=== PATIENT | female | born 1960 | race Caucasian/White ===

== ENCOUNTER 2017-05-25 12:47 | Inpatient (IN) | payer OTHER ==
[2017-05-25 16:07] VITALS: BMI 32.3
--- NOTE | 2017-05-25 18:02 | HP ---
CIWA Score - CIWA Score Nausea/Vomitin-Mild Nausea/No Vomiting Muscle Tremors: 4-Moderate,w/Arms Extend Anxiety: 4-Mod. Anxious/Guarded Agitation: 4-Moderately Restless Paroxysmal Sweats: 1-Minimal Palms Moist Orientation: 0-Oriented Tacttile Disturbances: 0-None Auditory Disturbances: 0-None Visual Disturbances: 0-None Headache: 0-None Present CIWA-Ar Total Score: 14 Admission ROS B[facility] - HPI Chief Complaint: WITHDRAWAL SX Allergies/Adverse Reactions: Allergies Allergy/AdvReac Type Severity Reaction Status Date / Time Penicillins Allergy Severe Rash Verified 05/25/17 16:34 shellfish derived Allergy Severe Rash Verified 05/25/17 16:34 History of Present Illness: 57 YEARS OLD FEMALE WITH LONG HISTORY OF ALCOHOL DEPENDENCE HAS GERD AND LOWER BACK PAIN AND DEPRESSION IS ADMITTED TO DETOX Exam Limitations: No Limitations - Ebola screening Have you traveled outside of the country in the last 21 days: No Have you had contact with anyone from an Ebola affected area: No Have you been sick,other than usual withdrawal symptoms: No Do you have a fever: No - Review of Systems Constitutional: Changes in sleep, Weight Stable EENT: reports: Blurred Vision (READING EYE GLASSES) Respiratory: reports: No Symptoms reported Cardiac: reports: No Symptoms Reported GI: reports: Diarrhea, Nausea, Poor Fluid Intake, Indigestion, Abdominal cramping : reports: No Symptoms Reported Musculoskeletal: reports: Back Pain (ARTHRITIS) Integumentary: reports: No Symptoms Reported Neuro: reports: Seizure (2013 ALCOHOL RELATED), Tremors Endocrine: reports: No Symptoms Reported Hematology: reports: No Symptoms Reported Psychiatric: reports: Judgement Intact, Orientated x3, Depressed Other Systems: Reviewed and Negative Patient History - Patient Medical History Hx Anemia: No Hx Asthma: No Hx Chronic Obstructive Pulmonary Disease (COPD): No Hx Cancer: No Hx Cardiac Disorders: No Hx Congestive Heart Failure: No Hx Hypertension: No Hx Hypercholesterolemia: No Hx Pacemaker: No HX Cerebrovascular Accident: No Hx Seizures: Yes (etoh related in 2013) Hx Dementia: No Hx Diabetes: No Hx Gastrointestinal Disorders: Yes Hx Liver Disease: No Hx Genitourinary Disorders: No Hx Sexually Transmitted Disorders: No Hx Renal Disease (ESRD): No Hx Thyroid Disease: No Hx Human Immunodeficiency Virus (HIV): No Hx Hepatitis C: No Hx Depression: Yes Hx Suicide Attempt: No Hx Bipolar Disorder: No Hx Schizophrenia: No - Patient Surgical History Past Surgical History: Yes Hx Orthopedic Surgery: Yes (bilateral knee replacements 07/22/16 L knee 10/10/16 R knee) Anesthesia Reaction: No - PPD History Previous Implant?: Yes Documented Results: Negative w/o proof Implanted On Prior [facility] Admission?: No PPD to be Administered?: Yes - Reproductive History Patient is a Female of Child Bearing Age (11 -55 yrs old): No Patient : No - Smoking Cessation Smoking history: Never smoked Hx Chewing Tobacco Use: No Initiated information on smoking cessation: No - Substance & Tx. History Hx Alcohol Use: Yes Hx Substance Use: No Substance Use Type: Alcohol Hx Substance Use Treatment: Yes (2014) - Substances Abused Alcohol Route: Oral Frequency: Daily Amount used: 2 pints VODKA Age of first use: 16 Date of Last Use: 05/25/17 Family Disease History - Family Disease History Family Disease History: Heart Disease: Mother, Other: Father ( ALCOHOL) Admission Physical Exam [facility] - Vital Signs Vital Signs: Vital Signs - 24 hr 05/25/17 15:49 Temperature 97.3 F L Pulse Rate 87 Respiratory 20 Rate Blood Pressure 137/83 - Physical General Appearance: Yes: Nourished, Appropriately Dressed, Mild Distress, Alcohol on Breath, Tremorous, Irritable, Sweating, Anxious HEENTM: Yes: Hearing grossly Normal, Normal ENT Inspection, Normocephalic, Normal Voice Respiratory: Yes: Chest Non-Tender, Lungs Clear, Normal Breath Sounds, No Respiratory Distress, No Accessory Muscle Use Neck: Yes: Supple, Trachea in good position Breast: Yes: Breasts Symetrical Cardiology: Yes: Regular Rhythm, Regular Rate, S1, S2 Abdominal: Yes: Non Tender, Soft, Increased Bowel Sounds Genitourinary: Yes: Within Normal Limits Back: Yes: Normal Inspection Musculoskeletal: Yes: full range of Motion, Gait Steady, Back pain Extremities: Yes: Normal Inspection, Normal Range of Motion, Non-Tender, Tremors Neurological: Yes: Alert, Motor Strength 5/5, Normal Response, Depressed Affect Integumentary: Yes: Warm Lymphatic: Yes: Within Normal Limits - Diagnostic (1) Alcohol dependence with uncomplicated withdrawal Current Visit: Yes Status: Acute (2) Chronic back pain Current Visit: Yes Status: Chronic Qualifiers: Back pain location: low back pain Back pain laterality: bilateral Sciatica presence: without sciatica Qualified Code(s): M54.5 - Low back pain; G89.29 - Other chronic pain; G89.29 - Other chronic pain (3) GERD (gastroesophageal reflux disease) Current Visit: Yes Status: Chronic Qualifiers: Esophagitis presence: without esophagitis Qualified Code(s): K21.9 - Gastro -esophageal reflux disease without esophagitis (4) Depression (emotion) Current Visit: Yes Status: Suspected Qualifiers: Depression Type: dysthymia Qualified Code(s): F34.1 - Dysthymic disorder Cleared for Admission S - Detox or Rehab [facility] Level of Care: Medically Managed Detox Regimen/Protocol: Librium [facility] Breath Alcohol Content Breath Alcohol Content: 0.123 Urine Pregancy Test - Result Urine Test Results: Negative- NO Line Present Urine Drug Screen - Results Drug Screen Negative: No Urine Drug Screen Results: TCA-Tricyclic Antidepress
[2017-05-25] MEDS ORDERED: P-EPHED 60MG/TRIPROLIDI 2.5MG TABLET PO PRN (18:09)
[2017-05-25] MEDS ORDERED: guaiFENesin/D-METHORPHAN HB 10 ML UNIT-DOSE CUPS PO PRN (18:09)
[2017-05-25] MEDS ORDERED: MAGNESIUM CITRATE 300 ML BOTTLE PO PRN (18:09)
[2017-05-25] MEDS ORDERED: ACETAMINOPHEN 325 MG TABLET (FP) PO PRN (18:09)
[2017-05-25] MEDS ORDERED: chlordiazePOXIDE HCL 25 MG CAPSULE PO PRN (18:09)
[2017-05-25] MEDS ORDERED: MENTHOL/PHENOL 1 EACH UD MM PRN (18:09)
[2017-05-25] MEDS ORDERED: MAGNESIUM HYDROX 2400MG/30ML ORAL SUSPENSION 30 ML CUP PO PRN (18:09)
[2017-05-25] MEDS ORDERED: MAG HYDROX/AL HYDROX/SIMETH 30 ML UNIT-DOSE CUP PO PRN (18:09)
[2017-05-25] MEDS ORDERED: LOPERAMIDE HCL 2 MG CAPSULE PO PRN (18:09)
[2017-05-25 20:30] LABS: URINE APPEARANCE SLCLOUDY; URINE BILIRUBIN NEGATIVE (NEGATIVE); URINE BLOOD NEGATIVE (NEGATIVE); URINE COLOR YELLOW; URINE GLUCOSE (UA) NEGATIVE (NEGATIVE); URINE KETONE TRACE (NEGATIVE); URINE NITRITE NEGATIVE (NEGATIVE); URINE UROBILINOGEN NEGATIVE mg/dL (0.2-1.0)
[2017-05-25 20:39] LABS: URINE PROTEIN 1+ (NEGATIVE)
[2017-05-25 20:47] LABS: URINE HYALINE CAST 7 /lpf; URINE MUCUS RARE; URINE RBC 1 /hpf (0-3); URINE WBC 1 /hpf (3-5)
[2017-05-25 22:10] LABS: URINE LEUK ESTERASE Negative (NEGATIVE)
[2017-05-25] MEDS: RANITIDINE HCL 150 MG TABLET (FP) PO SCH (22:13)
[2017-05-25] MEDS: BACLOFEN 10 MG TABLET (FP) PO SCH (22:13)
[2017-05-25] MEDS: THIAMINE HCL 100 MG TABLET (FP) PO SCH (22:13)
[2017-05-25] MEDS: NAPROXEN 500 MG TABLET (FP) PO PRN (22:14)
[2017-05-25] MEDS: GABAPENTIN 300 MG CAPSULE (FP) PO SCH (22:14)
[2017-05-25] MEDS: chlordiazePOXIDE HCL 25 MG CAPSULE PO SCH (22:14)
[2017-05-26] MEDS: GABAPENTIN 300 MG CAPSULE (FP) PO SCH ×3 (05:25→22:14)
[2017-05-26] MEDS: BACLOFEN 10 MG TABLET (FP) PO SCH ×3 (05:25→22:13)
[2017-05-26] MEDS: chlordiazePOXIDE HCL 25 MG CAPSULE PO SCH ×4 (06:07→22:13)
[2017-05-26 10:03] LABS: MCH 27.9 pg (25.7-33.7); MCHC 32.3 g/dl (32.0-36.0); MEAN CELL VOLUME 86.3 fl (80-96); MEAN PLT VOLUME 7.4 fl (7.5-11.1); PLATELET COUNT 278 K/MM3 (134-434); RDW 18.1 % (11.6-15.6); WHITE BLOOD COUNT 5.8 K/mm3 (4.0-10.0)
[2017-05-26] MEDS: RANITIDINE HCL 150 MG TABLET (FP) PO SCH ×2 (10:23→22:14)
[2017-05-26] MEDS: PRENATAL VITAMINS W/ FOLIC ACID TABLET (FP) PO SCH (10:23)
[2017-05-26] MEDS: LIDOCAINE 5% TOPICAL PATCH TP SCH (10:23)
[2017-05-26 10:30] LABS: ALBUMIN 3.7 g/dl (3.4-5.0); ALK PHOS 74 U/L (45-117); ANION GAP 10 (8-16); BILIRUBIN,TOTAL 1.2 mg/dL (0.2-1.0); CALCIUM 9.2 mg/dL (8.5-10.1); CO2 30 mmol/L (21-32); CREATININE 0.8 mg/dL (0.55-1.02); GLUCOSE,RANDOM 86 mg/dL (74-106); SGOT/AST 28 U/L (15-37); SGPT/ALT 23 U/L (12-78); TOT PROT 6.8 g/dl (6.4-8.2)
--- NOTE | 2017-05-26 12:08 | PN ---
[facility] CIWA - CIWA Score Nausea/Vomitin-No Nausea/No Vomiting Muscle Tremors: 4-Moderate,w/Arms Extend Anxiety: 4-Mod. Anxious/Guarded Agitation: 4-Moderately Restless Paroxysmal Sweats: 3 Orientation: 0-Oriented Tacttile Disturbances: 0-None Auditory Disturbances: 0-None Visual Disturbances: 0-None Headache: 2-Mild CIWA-Ar Total Score: 17 BHS Progress Note (SOAP) Subjective: headache sweats stomach ache diarrhea Objective: 05/26/17 12:06 Vital Signs Temperature 97.7 F 05/26/17 09:33 Pulse Rate 79 05/26/17 09:33 Respiratory Rate 18 05/26/17 09:33 Blood Pressure 119/71 05/26/17 09:33 O2 Sat by Pulse Oximetry (%) Laboratory Tests 05/25/17 05/26/17 05/26/17 19:40 07:00 07:00 WBC 5.8 RBC 4.00 Hgb 11.1 Hct 34.5 MCV 86.3 MCH 27.9 MCHC 32.3 RDW 18.1 H Plt Count 278 MPV 7.4 L Sodium 141 Potassium 4.2 Chloride 101 Carbon Dioxide 30 Anion Gap 10 BUN 18 Creatinine 0.8 Creat Clearance w eGFR > 60 Random Glucose 86 Calcium 9.2 Total Bilirubin 1.2 H AST 28 ALT 23 Alkaline Phosphatase 74 Total Protein 6.8 Albumin 3.7 Urine Color Yellow Urine Appearance Slcloudy Urine pH 5.0 Ur Specific [place] 1.020 Urine Protein 1+ H Urine Glucose (UA) Negative Urine Ketones Trace H Urine Blood Negative Urine Nitrite Negative Urine Bilirubin Negative Urine Urobilinogen Negative Ur Leukocyte Esterase Negative Urine WBC (Auto) 1 Urine RBC (Auto) 1 Ur Epithelial Cells Rare Hyaline Casts 7 Urine Mucus Rare RPR Titer 05/26/17 07:00 WBC RBC Hgb Hct MCV MCH MCHC RDW Plt Count MPV Sodium Potassium Chloride Carbon Dioxide Anion Gap BUN Creatinine Creat Clearance w eGFR Random Glucose Calcium Total Bilirubin AST ALT Alkaline Phosphatase Total Protein Albumin Urine Color Urine Appearance Urine pH Ur Specific [place] Urine Protein Urine Glucose (UA) Urine Ketones Urine Blood Urine Nitrite Urine Bilirubin Urine Urobilinogen Ur Leukocyte Esterase Urine WBC (Auto) Urine RBC (Auto) Ur Epithelial Cells Hyaline Casts Urine Mucus RPR Titer Nonreactive aaox3 ambulating no acute distress Assessment: 05/26/17 12:07 withdrawals sx Plan: continue detox increase fluids immodium prn tylenol/motrin prn
--- NOTE | 2017-05-26 12:50 | PN ---
B[facility] Progress Note Note: Pt. approached bedside by news writer. Refused to be seen by Psychiatric Nurse Practitioner.
--- NOTE | 2017-05-26 16:14 | CONSULT ---
[facility] Psychiatric Consult - Data Date of interview: 05/26/17 Admission source: [facility] Identifying data: Readmission to [facility] for this 57 y/o female seeking detox treatment on for alcohol dependence.Patient is single without children,domiciled,unemployed and supported on welfare. Substance Abuse History: Discussed in this session.Patient admits to active use of alcohol.Details in current [facility] report. Smoking history: Never smoked. Hx Chewing Tobacco Use: No. Initiated information on smoking cessation: No. - Substance & Tx. History. Hx Alcohol Use: Yes. Hx Substance Use: No. Substance Use Type: Alcohol. Hx Substance Use Treatment: Yes (2014). - Substances Abused. Alcohol. Route: Oral. Frequency: Daily. Amount used: 2 pints VODKA. Age of first use: 16. Date of Last Use: 05/25/17 Medical History: Arthritis,lower back pain,GERD and a history of bilateral knee replacement. Psychiatric History: No reported history of psychiatric hospitalizations.Patient reports that she has just started therapy (no medications) at [facility] in April 2017 ([facility]) in [facility].Suspected of having DONALD.Ms Drake denies history of suicide attempts. Physical/Sexual Abuse/Trauma History: Patient denies. Additional Comment: Urine Drug Screen Results: TCA-Tricyclic Antidepressant.Noted. Mental Status Exam - Mental Status Exam Alert and Oriented to: Time, Place, Person Cognitive Function: Good Patient Appearance: Well Groomed Mood: Hopeful, Euthymic Affect: Appropriate, Normal Range Patient Behavior: Appropriate, Cooperative (well-mannered) Speech Pattern: Clear, Appropriate Voice Loudness: Normal Thought Process: Intact, Goal Oriented Thought Disorder: Not Present Hallucinations: Denies Suicidal Ideation: Denies Homicidal Ideation: Denies Insight/Judgement: Poor Sleep: Well Appetite: Good Muscle strength/Tone: Normal Gait/Station: Normal Psychiatric Findings - Problem List ([place] 1, 2,3) (1) Alcohol dependence with uncomplicated withdrawal Current Visit: Yes Status: Acute (2) Alcohol-induced mood disorder Current Visit: Yes Status: Suspected - Initial Treatment Plan Initial Treatment Plan: Psychoeducation.Detoxification in effect.Obserrvation.
[2017-05-26] MEDS: LORATADINE 10 MG TABLET PO SCH (17:01)
[2017-05-26] MEDS: LIDOCAINE PATCH REMOVAL MC SCH (22:13)
[2017-05-26] MEDS: THIAMINE HCL 100 MG TABLET (FP) PO SCH (22:14)
[2017-05-26] MEDS: NAPROXEN 500 MG TABLET (FP) PO PRN (22:14)
[2017-05-27] MEDS: BACLOFEN 10 MG TABLET (FP) PO SCH ×3 (05:26→22:21)
[2017-05-27] MEDS: chlordiazePOXIDE HCL 25 MG CAPSULE PO SCH ×3 (05:26→17:23)
[2017-05-27] MEDS: GABAPENTIN 300 MG CAPSULE (FP) PO SCH ×3 (05:27→22:21)
--- NOTE | 2017-05-27 08:01 | EKG ---
Test Reason : Blood Pressure : / mmHG Vent. Rate : 093 BPM Atrial Rate : 093 BPM P-R Int : 144 ms QRS Dur : 128 ms QT Int : 386 ms P-R-T Axes : 054 054 031 degrees QTc Int : 479 ms NORMAL SINUS RHYTHM RIGHT BUNDLE BRANCH BLOCK ABNORMAL ECG NO PREVIOUS ECGS AVAILABLE Confirmed by MD Gomez Daniel ([id number]) on 05/26/2017 3:04:21 PM Also confirmed by MD Gomez Daniel [id number]), editor school photograph RICHARD ORTEGA ([id number]) on 05/27/2017 8:00:55 AM Referred By: Beatrice Zamarripa Confirmed By:Richard Gomez MD
[2017-05-27] MEDS: PRENATAL VITAMINS W/ FOLIC ACID TABLET (FP) PO SCH (10:42)
[2017-05-27] MEDS: RANITIDINE HCL 150 MG TABLET (FP) PO SCH ×2 (10:42→22:21)
[2017-05-27] MEDS: LORATADINE 10 MG TABLET PO SCH (10:42)
[2017-05-27] MEDS: LIDOCAINE 5% TOPICAL PATCH TP SCH (10:43)
--- NOTE | 2017-05-27 11:00 | PN ---
[facility] CIWA - CIWA Score Nausea/Vomitin-No Nausea/No Vomiting Muscle Tremors: 4-Moderate,w/Arms Extend Anxiety: 4-Mod. Anxious/Guarded Agitation: 4-Moderately Restless Paroxysmal Sweats: 3 Orientation: 0-Oriented Tacttile Disturbances: 0-None Auditory Disturbances: 0-None Visual Disturbances: 0-None Headache: 0-None Present CIWA-Ar Total Score: 15 BHS Progress Note (SOAP) Subjective: diarrhea sweats shakes Objective: 05/27/17 11:06 Vital Signs Temperature 97.9 F 05/27/17 10:16 Pulse Rate 78 05/27/17 10:16 Respiratory Rate 18 05/27/17 10:16 Blood Pressure 117/89 05/27/17 10:16 O2 Sat by Pulse Oximetry (%) Laboratory Tests 05/25/17 05/26/17 05/26/17 19:40 07:00 07:00 WBC 5.8 RBC 4.00 Hgb 11.1 Hct 34.5 MCV 86.3 MCH 27.9 MCHC 32.3 RDW 18.1 H Plt Count 278 MPV 7.4 L Sodium 141 Potassium 4.2 Chloride 101 Carbon Dioxide 30 Anion Gap 10 BUN 18 Creatinine 0.8 Creat Clearance w eGFR > 60 Random Glucose 86 Calcium 9.2 Total Bilirubin 1.2 H AST 28 ALT 23 Alkaline Phosphatase 74 Total Protein 6.8 Albumin 3.7 Urine Color Yellow Urine Appearance Slcloudy Urine pH 5.0 Ur Specific [place] 1.020 Urine Protein 1+ H Urine Glucose (UA) Negative Urine Ketones Trace H Urine Blood Negative Urine Nitrite Negative Urine Bilirubin Negative Urine Urobilinogen Negative Ur Leukocyte Esterase Negative Urine WBC (Auto) 1 Urine RBC (Auto) 1 Ur Epithelial Cells Rare Hyaline Casts 7 Urine Mucus Rare RPR Titer 05/26/17 07:00 WBC RBC Hgb Hct MCV MCH MCHC RDW Plt Count MPV Sodium Potassium Chloride Carbon Dioxide Anion Gap BUN Creatinine Creat Clearance w eGFR Random Glucose Calcium Total Bilirubin AST ALT Alkaline Phosphatase Total Protein Albumin Urine Color Urine Appearance Urine pH Ur Specific [place] Urine Protein Urine Glucose (UA) Urine Ketones Urine Blood Urine Nitrite Urine Bilirubin Urine Urobilinogen Ur Leukocyte Esterase Urine WBC (Auto) Urine RBC (Auto) Ur Epithelial Cells Hyaline Casts Urine Mucus RPR Titer Nonreactive aaox3 ambulating no acute distress Assessment: 05/27/17 11:06 withdrawal sx Plan: continue detox immodium prn increase fluids
[2017-05-27] MEDS: chlordiazePOXIDE 5 MG CAPSULE PO SCH (22:20)
[2017-05-27] MEDS: LIDOCAINE PATCH REMOVAL MC SCH (22:21)
[2017-05-27] MEDS: NAPROXEN 500 MG TABLET (FP) PO PRN (22:21)
[2017-05-27] MEDS: THIAMINE HCL 100 MG TABLET (FP) PO SCH (22:21)
[2017-05-28] MEDS: chlordiazePOXIDE 5 MG CAPSULE PO SCH ×3 (05:55→17:33)
[2017-05-28] MEDS: GABAPENTIN 300 MG CAPSULE (FP) PO SCH ×3 (05:55→22:24)
[2017-05-28] MEDS: BACLOFEN 10 MG TABLET (FP) PO SCH ×3 (05:55→22:24)
--- NOTE | 2017-05-28 08:53 | PN ---
BHS Progress Note (SOAP) Subjective: little shaky feeling better little sweats Objective: 05/28/17 08:53 Vital Signs Temperature 96.8 F L 05/28/17 06:00 Pulse Rate 64 05/28/17 06:00 Respiratory Rate 20 05/28/17 06:00 Blood Pressure 121/66 05/28/17 06:00 O2 Sat by Pulse Oximetry (%) aaox3 ambulating no acute distress Assessment: 05/28/17 08:53 mild withdrawal sx Plan: continue detox increase fluids d/c in am
[2017-05-28] MEDS: LORATADINE 10 MG TABLET PO SCH (10:56)
[2017-05-28] MEDS: PRENATAL VITAMINS W/ FOLIC ACID TABLET (FP) PO SCH (10:56)
[2017-05-28] MEDS: RANITIDINE HCL 150 MG TABLET (FP) PO SCH ×2 (10:56→22:24)
[2017-05-28] MEDS: LIDOCAINE 5% TOPICAL PATCH TP SCH (10:56)
[2017-05-28] MEDS: NAPROXEN 500 MG TABLET (FP) PO PRN ×2 (14:26→22:24)
[2017-05-28] MEDS: LIDOCAINE PATCH REMOVAL MC SCH (22:24)
[2017-05-28] MEDS: THIAMINE HCL 100 MG TABLET (FP) PO SCH (22:24)
[2017-05-28] MEDS: chlordiazePOXIDE HCL 10 MG CAPSULE PO SCH (22:24)
[2017-05-29] MEDS: BACLOFEN 10 MG TABLET (FP) PO SCH (05:36)
[2017-05-29] MEDS: chlordiazePOXIDE HCL 10 MG CAPSULE PO SCH (05:36)
[2017-05-29] MEDS: GABAPENTIN 300 MG CAPSULE (FP) PO SCH (05:36)
--- NOTE | 2017-05-29 08:42 | DS ---
[facility] Detox Discharge Summary Admission Date: 05/25/17 Discharge Date: 05/29/17 - History Present History: Alcohol Dependence - Physical Exam Results Vital Signs: Vital Signs Temperature 97.7 F 05/29/17 06:00 Pulse Rate 57 L 05/29/17 06:00 Respiratory Rate 18 05/29/17 06:00 Blood Pressure 115/54 05/29/17 06:00 O2 Sat by Pulse Oximetry (%) - Treatment Hospital Course: Detox Protocol Followed, Detoxed Safely, Responded well, Discharged Condition Good, Rehab Referral Accepted - Medication Discharge Medications: Ambulatory Orders Diphenhydramine HCl [Benadryl -] 25 mg PO Q6H PRN 05/25/17 Gabapentin [Neurontin] 600 mg PO TID 05/25/17 Gabapentin [Neurontin] 600 mg PO TID 05/25/17 - Diagnosis (1) Alcohol dependence with uncomplicated withdrawal Current Visit: Yes Status: Chronic (2) Chronic back pain Current Visit: Yes Status: Chronic Qualifiers: Back pain location: low back pain Back pain laterality: bilateral Sciatica presence: without sciatica Qualified Code(s): M54.5 - Low back pain; G89.29 - Other chronic pain; G89.29 - Other chronic pain (3) GERD (gastroesophageal reflux disease) Current Visit: Yes Status: Chronic Qualifiers: Esophagitis presence: without esophagitis Qualified Code(s): K21.9 - Gastro -esophageal reflux disease without esophagitis (4) Alcohol-induced mood disorder Current Visit: Yes Status: Suspected (5) Depression (emotion) Current Visit: Yes Status: Suspected Qualifiers: Depression Type: dysthymia Qualified Code(s): F34.1 - Dysthymic disorder - AMA Did Patient Leave Against Medical Advice: No
[2017-05-29] MEDS: LORATADINE 10 MG TABLET PO SCH (09:13)
[2017-05-29] MEDS: PRENATAL VITAMINS W/ FOLIC ACID TABLET (FP) PO SCH (09:13)
[2017-05-29] MEDS: RANITIDINE HCL 150 MG TABLET (FP) PO SCH (09:13)
[2017-05-29] MEDS: LIDOCAINE 5% TOPICAL PATCH TP SCH (09:14)
[2017-05-29 10:25] VITALS: BP 116/78; PULSE 81; TEMP 97.5
== END 2017-05-29 10:00 | disposition home or self-care (01) | DRG 775 ==
LOC: YASAS 12:47 → Y6N 18:23
PROVIDERS: ADMIT Internal Medicine; ATTEND Internal Medicine
PROC: HZ2ZZZZ Detoxification Services for Substance Abuse Treatment (ICD-10-PCS; principal; 2017-05-25)
DX: F10.230 Alcohol dependence with withdrawal, uncomplicated (principal); F34.1 Dysthymic disorder; F10.24 Alcohol dependence with alcohol-induced mood disorder; K21.9 Gastro-esophageal reflux disease without esophagitis; M54.5 Low back pain; G89.29 Other chronic pain
CPT/HCPCS: 36415; 80053; 81003; 81015; 85027; 86593; 93005; 93010; J0475